=== PATIENT | female | born 1960 | race Caucasian/White ===

== ENCOUNTER 2023-07-27 08:36 | Outpatient (CLI) | payer BC, SELFPAY | END 2023-07-27 08:37 | disposition home or self-care (01) | LOC: NFLDREF 07-28 08:33 | PROVIDERS: PCP Family Medicine; Referring Provider Family Medicine; Visit Provider Physician Assistant | DX: R35.0 Frequency of micturition (principal); N39.0 Urinary tract infection, site not specified | CPT/HCPCS: 87086; 87186 ==